=== PATIENT | female | born 1950 | race Caucasian/White ===

== ENCOUNTER 2020-01-04 08:59 | Outpatient (RCR) | payer MEDICARE, SELFPAY ==
--- NOTE | 2020-01-04 10:00 | PTOPEVAL ---
Thank you for referring Kacey Bills to [facility].? The patient is scheduled to be seen for therapy? __3__x/week for 12 visits. Please review, sign, date and return this plan of care TIFFANI. I agree with and certify that the following plan of care is medically necessary. Referring Physician Date Admitting Provider: Attending Provider: Garth Monroy MD Referring Provider: *PT Outpatient Evaluation Start: 01/04/20 09:03 Freq: Status: Active Protocol: Document 01/04/20 09:05 ARIELLA (Rec: 01/04/20 09:41 [email or web address] [email or web address]) Therapy Assessment Status Assessment Status Assessment Status Evaluation Evaluation Information Problem Diagnosis s/p right TKA Onset 12/31/19 Subjective Information Pt. reports she underwent Query Text:As Reported By Patient/ right TKA on 12/31/19. she Family reports she has been doing exercise since coming home. She reports that she does have constant pain. She states that sleeping at night is difficult due to inability to get comfortable. Pt. reports that she wants to be able to return to walking normal at discharge. Prior Level of Function Activity Level (Last 3 Months) Occupation retired Hand Dominance Right Activity of Daily Living Ability Independent Indoor/Home Mobility Independent Community Mobility Independent Stairs Ability Independent Functional Cognition (Planning, Shopping Independent , Taking Medications) Cooking Yes Cleaning Yes Laundry Yes Shopping Yes Driving Yes Home Setting Home Type House Living Situation With Spouse Support Available Local Family Support Mobility Assistive Devices (Used Last 3 None Months) Pain Assessment Pain Scale Pain Scale Used Numeric (1 - 10) Self Report Pain Assessment Right Knee(s) Reported Pain Level 5 Pain Description Aching Pain Frequency Continuous Lowest Pain Intensity 5 Greatest Pain Intensity 10 Pain Score Pain Score 5: Self Report Lower Extremity Range of Motion General Lower Extremity Range of Motion Gross Lower Extremity Range of Motion right knee AROM 10-81 degrees Comments left knee AROM 0-130 degrees Lower Extremity Muscle Streng
--- NOTE | 2020-01-29 16:03 | PTOPEVAL ---
Thank you for referring Kacey Bills to [facility].? The patient is scheduled to be seen for therapy? __2__x/week for 6 visits. Please review, sign, date and return this plan of care TIFFANI. I agree with and certify that the following plan of care is medically necessary. Referring Physician Date Admitting Provider: Attending Provider: Garth Monroy MD Referring Provider: *PT Outpatient Evaluation Start: 01/04/20 09:03 Freq: Status: Active Protocol: Document 01/29/20 15:49 ARIELLA (Rec: 01/29/20 15:59 [email or web address]) Therapy Assessment Status Assessment Status Assessment Status Progress Evaluation Information Problem Subjective Information Pt. reports that she is doing Query Text:As Reported By Patient/ better. She states that she Family still has concern with remaining stiffness and pain. She reports that she is no longer using an AD. she still notes some difficulty with steps and walking long distances. Pt. states that she would like to continue with PT in order to continue to improve strength and mobility. Pain Assessment Pain Scale Pain Scale Used Numeric (1 - 10) Self Report Pain Assessment Right Knee(s) Reported Pain Level 2 Pain Score Pain Score 2: Self Report Lower Extremity Range of Motion General Lower Extremity Range of Motion Gross Lower Extremity Range of Motion right knee AROM 3-116 degrees Comments Lower Extremity Muscle Strength Testing General Lower Extremity Strength Gross Lower Extremity Strength Pt. is capable of completing right SLR in repetition witout assist. Extremity Circumference Assessment Circumference Assessment Location Right Body Part Knee Site Descriptor ([place]) joint line Circumference (cm) 44 Noninvolved Side Circumference (cm) 41 Gait Assessment Gait Assessment Additional Ambulation Comments Pt. ambulates over level surface without an AD demosntrating decreased right stance time compared to the left. 2 Minute Walk Total Distance Walked (feet) 280 2 Minute Walk Gait Speed Score (feet/ 2.33 second) Number of Breaks Required 0 General Exercise General Exercises Exercise Description -AAROM knee flexion x 6 Query Text:Record Sets, Reps, minutes
--- NOTE | 2020-02-18 10:23 | PTOPEVAL ---
Thank you for referring Kacey Bills to [facility].? The patient is scheduled to be seen for 2 visits. Please review, sign, date and return this plan of care TIFFANI. I agree with and certify that the following plan of care is medically necessary. Referring Physician Date Admitting Provider: Attending Provider: Garth Monroy MD Referring Provider: *PT Outpatient Evaluation Start: 01/04/20 09:03 Freq: Status: Active Protocol: Document 02/18/20 09:09 EDBIEDWARDPatric (Rec: 02/18/20 10:22 [email or web address] [email or web address]) Evaluation Information Problem Diagnosis s/p right TKA Subjective Information Pt. reports she has returned Query Text:As Reported By Patient/ to driving and performing Family community activities. She still notes a small amount of stiffness Pain Assessment Pain Scale Pain Scale Used Numeric (1 - 10) Self Report Pain Assessment Right Knee(s) Reported Pain Level 1 Pain Score Pain Score 1: Self Report Interventions Used Interventions Used By Clinicians Activity or ADL's,Exercise Lower Extremity Range of Motion General Lower Extremity Range of Motion Gross Lower Extremity Range of Motion right knee AROM 5-120 degrees Comments right knee AAROM 3-123 degrees Lower Extremity Muscle Strength Testing General Lower Extremity Strength Gross Lower Extremity Strength -bilateral hip flexion 5/5 -bilateral knee flexion 5/5 -right knee extension 4+/5 -left knee extension 5/5 -bilateral ankle dorsiflexion 5/5 Extremity Circumference Assessment Circumference Assessment Location Right Body Part Knee Site Descriptor ([place]) joint line Circumference (cm) 46 Noninvolved Side Circumference (cm) 42 Gait Assessment Gait Assessment Additional Ambulation Comments Pt. ambulates with lack of full knee extension during heel strike on the right. She demonstrates normal radha. Stair Climbing Assessment Stair Climbing Assessment Stair Climbing Comments Pt. navigates steps with handrail for 2 flights with reciprical pattern noted. General Exercise General Exercises Exercise Description -AAROM knee flexion and Query Text:Record Sets, Reps, extension x 10 minutes Resistance, and Position -Recumbent bike x 8 minutes level 5 -step ups x 20 -lateral step ups x 20
== END 2020-03-04 09:49 | disposition home or self-care (01) ==
LOC: CHSPT 08:59
PROVIDERS: Visit Provider Internal Medicine Infectious Disease
DX: M17.11 Unilateral primary osteoarthritis, right knee (principal); Z96.651 Presence of right artificial knee joint; R26.89 Other abnormalities of gait and mobility
CPT/HCPCS: 97016; 97110; 97161; 97530